=== PATIENT | female | born 1985 | race African-American/Black ===

== ENCOUNTER 2017-02-02 08:27 | Day surgery (SDC) | payer MEDICAID ==
[~2017-02-02 08:27] MED LIST: DIPHENHYDRAMINE HCL 50 MG/ML VIAL ONE; EPINEPHRINE INJ 1 MG/10 ML DISP.SYRIN ONE; FLUMAZENIL INJ 0.5 MG/5 ML VIAL IV ONE; GLUCAGON,HUMAN RECOMB 1 MG INJ ONE; NALOXONE HCL INJ/PF 0.4 MG/1 ML SDV ONE; ONDANSETRON HCL INJ/PF 4 MG/2 ML SDV ONE; PROMETHAZINE HCL INJ 25 MG/1 ML VIAL ONE
[2017-02-02] MEDS: MIDAZOLAM 2 MG/2 ML INJ ONE ×2 (09:14→09:18)
[2017-02-02] MEDS: FENTANYL CITRATE INJ/PF 100 MCG/2 ML AMPUL ONE ×2 (09:16→09:17)
--- NOTE | 2017-02-02 09:25 | Operative Report ---
Operative Report DATE OF SURGERY: 02/02/17 Operative Report: The risks benefits and alternatives of the procedure explained to the patient in detail and informed consent is obtained that GIF Olympus video scope was inserted into the patient's mouth and hypopharynx the esophagus is identified intubated and insufflated the scope was then advanced through the esophagus stomach and duodenum retroflexion maneuver is done the esophagus stomach and first and second portions of the duodenum examined PREOPERATIVE DIAGNOSIS: Nausea vomiting POSTOPERATIVE DIAGNOSIS: Gastritis status post biopsy rule out Helicobacter pylori OPERATION: EGD with biopsy SURGEON: ROSSI CHAVARRIA ANESTHESIA: Moderate Sedation - 4 mg of Versed, 100 g of fentanyl. Conscious sedation monitoring time 15 minutes. TISSUE REMOVED OR ALTERED: Gastric specimen obtained rule out Helicobacter pylori COMPLICATIONS: None. ESTIMATED BLOOD LOSS: none. INTRAOPERATIVE FINDINGS: Normal esophagus. Gastritis status post biopsy. Duodenitis PROCEDURE: Patient tolerated procedure well. No immediate postprocedure complications are noted. Patient is discharged in good condition. Discharge date 02/02/2017. Discharge diet: Regular. Discharge activity: Regular. 2-3 week follow-up to discuss findings. We'll await on biopsies. Patient is instructed to call the office or proceed to the emergency room should there be any further problems or questions.
[2017-02-02 11:03] VITALS: BP 102/85
== END 2017-02-02 10:45 | disposition home or self-care (01) ==
LOC: END 08:27
PROVIDERS: ATTEND Internal Medicine Gastroenterology
PROC: 0DB68ZX Excision of Stomach, Via Natural or Artificial Opening Endoscopic, Diagnostic (ICD-10-PCS; principal; 2017-02-02 09:00)
DX: K29.50 Unspecified chronic gastritis without bleeding (principal); F17.210 Nicotine dependence, cigarettes, uncomplicated; Z79.899 Other long term (current) drug therapy
CPT/HCPCS: 43239; 88342 ×2; 88305 ×2; J2250; J3010; J0171; J1200; J1610; J2310; J2405; J2550; J3490

== ENCOUNTER 2019-12-16 08:08 | Emergency (ER) | payer SELFPAY ==
[2019-12-16 08:14] VITALS: BP 128/86
[2019-12-16] MEDS ORDERED: CEPHALEXIN 500 MG CAPSULE PO ONE (09:11)
[2019-12-16] MEDS ORDERED: SULFAMETHOXAZOLE/TRIMETHOPRIM 800-160 MG TABLET PO ONE (09:11)
[2019-12-16] MEDS ORDERED: IBUPROFEN 800 MG TABLET PO ONE (09:11)
--- NOTE | 2019-12-16 09:14 | ER Document Report ---
HPI - HPI Patient complains to provider of: Ear pain Time Seen by Provider: 12/16/19 09:06 Onset: Other - 5 days Onset/Duration: Persistent Quality of pain: Achy Pain Level: 1 Context: Patient states that she had pus drained from a lump in front of her right ear 5 days ago. Patient states that since then she is developed an additional lump behind the ear. Patient denies any additional drainage. No fever. Associated Symptoms: Other - Tender bump near her ear. denies: Fever Exacerbated by: Denies Relieved by: Denies Similar symptoms previously: No Recently seen / treated by doctor: No - ROS ROS below otherwise negative: Yes Systems Reviewed and Negative: Yes All other systems reviewed and negative - CONSTITUTIONAL Constitutional: DENIES: Fever, Chills - EENT EENT: REPORTS: Ear Pain - REPRODUCTIVE Reproductive: DENIES: : - DERM Skin Color: Normal Notes: Tender lump near ear Past Medical History - General Information source: Patient - Social History Smoking Status: Current Every Day Smoker Chew tobacco use (# tins/day): No Frequency of alcohol use: None Drug Abuse: None Occupation: None Family History: DM, Hypertension Patient has suicidal ideation: No Patient has homicidal ideation: No - Medical History Medical History: Negative Neurological Medical History: Denies: Hx Cerebrovascular Accident, Hx Seizures Musculoskeletal Medical History: Denies Hx Arthritis Surgical Hx: Negative Past Surgical History: Denies: Hx Hysterectomy - Immunizations Hx Diphtheria, Pertussis, Tetanus Vaccination: Yes Vertical Provider Document - CONSTITUTIONAL Agree With Documented VS: Yes Exam Limitations: No Limitations General Appearance: WD/WN, No Apparent Distress - INFECTION CONTROL TRAVEL OUTSIDE OF THE [place] IN LAST 30 DAYS: No - HEENT HEENT: Atraumatic, Normocephalic Notes: Tender nodular lesion right preauricular area - NECK Neck: Supple Notes: Patient with postauricular lymphadenopathy right side - RESPIRATORY Respiratory: Breath Sounds Normal, No Respiratory Distress - CARDIOVASCULAR Cardiovascular: Regular Rate, Regular Rhythm - MUSCULOSKELETAL/EXTREMETIES Musculoskeletal/Extremeties: MAEW - NEURO Level of Consciousness: Awake, Alert, Appropriate Motor/Sensory: No Motor Deficit - DERM Integumentary: Warm, Dry, Abscess - Right preauricular area Course - Re-evaluation Re-evalutation: 12/16/19 09:12 Nodular lesion to right preauricular area looks worrisome for resolving abscess at this time. Will cover with antibiotics to aid in resolution. Good return precautions discussed with patient. - Vital Signs Vital signs: Temp Pulse Resp BP Pulse Ox 98.1 F 86 14 128/86 H 97 12/16/19 08:11 12/16/19 08:11 12/16/19 08:11 12/16/19 08:11 12/16/19 08:11 Discharge - Discharge Clinical Impression: Abscess, Lymphadenopathy Condition: Stable Disposition: HOME, SELF-CARE Instructions: Abscess ([facility]), Cephalexin ([facility]), Trimethoprim-Sulfa ([facility]) Additional Instructions: Return immediately for any new or worsening symptoms Followup with your primary care provider, call tomorrow to make a followup appointment Apply warm compresses frequently to the area Prescriptions: Sulfamethoxazole/Trimethoprim [Bactrim Ds Tablet] 1 each PO BID #20 tablet Cephalexin Monohydrate [Keflex 500 mg Capsule] 500 mg PO Q6H 5 Days #20 capsule Naproxen [Naprosyn 250 Nmg Tablet] 1 tab PO BID #14 tablet Referrals: BRITTA ABURTO FNP-C [Primary Care Provider] - Follow up as needed
== END 2019-12-16 09:27 | disposition home or self-care (01) ==
LOC: ER 08:08
DX: L02.91 Cutaneous abscess, unspecified (principal); R59.0 Localized enlarged lymph nodes; F17.200 Nicotine dependence, unspecified, uncomplicated; H92.09 Otalgia, unspecified ear